=== PATIENT | female | born 1985 | race Caucasian/White ===

== ENCOUNTER 2018-07-13 19:36 | Observation (INO) | payer MEDICAID ==
[~2018-07-13] VITALS: Ht 167.6 cm; Wt 76.4 kg
[2018-07-13 20:32] LABS: BASOPHILS 0.2 % (0-2); EOSINOPHILS 0.7 % (0-7); HEMATOCRIT 34.7 % (36.0-48.0); HEMOGLOBIN 11.2 g/dL (12-16); IMMATURE GRANULOCYTES 0.2 % (0-5); LYMPHOCYTES 7.2 % (15-50); MCH 27.2 pg (26.0-34.0); MCHC 32.3 g/dL (31.0-37.0); MCV 84.2 fL (80.0-100.0); MEAN PLATELET VOLUME 9.5 fL (7.4-10.4); MONOCYTES 2.2 % (2-11); NEUTROPHILS 89.5 % (40-80); PLATELET COUNT 323 10x3/uL (130-400); RBC 4.12 10x6/uL (4.00-5.40); RDW 13.6 % (11.5-14.5); WBC 5.9 10x3/uL (4.8-10.8)
[2018-07-13 20:36] LABS: HCG URINE NEGATIVE (NEGATIVE)
[2018-07-13 20:41] LABS: APPEARANCE CLEAR (CLEAR); BILIRUBIN 1+ (NEGATIVE); COLOR YELLOW (YELLOW); GLUCOSE NEGATIVE (NEGATIVE); KETONE SMALL mg/dL (NEGATIVE); NITRITE NEGATIVE (NEGATIVE); PROTEIN NEGATIVE (NEGATIVE)
[2018-07-13 20:43] LABS: BACTERIA FEW /hpf (NONE SEEN); EPITHELIAL CELLS 0-5 /hpf (0-5); RED CELLS - URINE 0-5 /hpf (0-5); WHITE CELLS - URINE 0-5 /hpf (0-5)
[2018-07-13 20:44] LABS: ALBUMIN 3.2 g/dL (3.4-5.0); ALKALINE PHOSPHATASE 101 U/L (46-116); ALT (SGPT) 58 U/L (10-68); CALC OSMOLALITY 267 mosm/kg (275-300); CALCIUM 8.1 mg/dL (8.5-10.1); CARBON DIOXIDE 28.4 mmol/L (21.0-32.0); CHLORIDE - SERUM 98 mmol/L (98-107); CREATININE - SERUM 0.8 mg/dL (0.6-1.3); GLUCOSE 95 mg/dL (74-106); MUCUS <1+ /lpf (NONE SEEN); POTASSIUM - SERUM 3.4 mmol/L (3.5-5.1); PROTEIN - SERUM 7.1 g/dL (6.4-8.2); SODIUM 135 mmol/L (136-145); UREA NITROGEN 8 mg/dL (7-18); eGFR NON AFRICAN AMERICAN 88 mL/min (90-120)
[2018-07-13 20:48] LABS: AMYLASE - SERUM 33 U/L (25-115); LIPASE 79 U/L (73-393); TROPONIN-I < 0.017 ng/mL (0.000-0.060)
--- NOTE | 2018-07-13 21:44 | NUR ---
PT SLEEPING ON BED, FAMILY AT BEDSIDE.
--- NOTE | 2018-07-13 22:15 | NUR ---
PT RESTING ON BED, NO S/S OF ACUTE DISTRESS NOTED AT THIS TIME.
[2018-07-13 22:37] VITALS: BP 125/62
--- NOTE | 2018-07-13 23:10 | NUR ---
PT SLEEPING ON BED. NO S/S OF ACUTE DISTRESS NOTED.
[2018-07-13 23:49] VITALS: BP 126/75
--- NOTE | 2018-07-14 00:10 | NUR ---
PT UPDATED ON PLAN OF CARE. PT FAMILY AT BEDSIDE.
--- NOTE | 2018-07-14 00:44 | NUR ---
PT SLEEPING ON BED AFTER RECEIVING IV MORPHINE.
[2018-07-14 02:48] VITALS: BP 100/61; BMI 27.0
[2018-07-14 04:00] VITALS: BP 98/54
[2018-07-14 07:30] LABS: BASOPHILS 0.2 % (0-2); EOSINOPHILS 0.5 % (0-7); HEMATOCRIT 33.2 % (36.0-48.0); HEMOGLOBIN 10.4 g/dL (12-16); LYMPHOCYTES 22.8 % (15-50); MCH 26.5 pg (26.0-34.0); MCHC 31.3 g/dL (31.0-37.0); MCV 84.7 fL (80.0-100.0); MONOCYTES 5.9 % (2-11); NEUTROPHILS 70.6 % (40-80); PLATELET COUNT 277 10x3/uL (130-400); RBC 3.92 10x6/uL (4.00-5.40); RDW 13.8 % (11.5-14.5)
[2018-07-14 07:33] LABS: WBC 4.2 10x3/uL (4.8-10.8)
--- NOTE | 2018-07-14 07:45 | NUR ---
PT RESTING IN BED, EYES CLOSED. RR ARE EVEN AND UNLABORED. WCTM.
[2018-07-14 07:51] LABS: ALBUMIN 2.4 g/dL (3.4-5.0); ALKALINE PHOSPHATASE 73 U/L (46-116); BILIRUBIN - TOTAL 0.36 mg/dL (0.2-1.3); CALC OSMOLALITY 273 mosm/kg (275-300); CARBON DIOXIDE 26.3 mmol/L (21.0-32.0); CHLORIDE - SERUM 103 mmol/L (98-107); CREATININE - SERUM 0.8 mg/dL (0.6-1.3); GLUCOSE 90 mg/dL (74-106); PROTEIN - SERUM 5.5 g/dL (6.4-8.2); SODIUM 138 mmol/L (136-145); UREA NITROGEN 6 mg/dL (7-18); eGFR NON AFRICAN AMERICAN 88 mL/min (90-120)
[2018-07-14 07:57] LABS: ALT (SGPT) 43 U/L (10-68)
[2018-07-14 09:12] VITALS: BP 89/59
--- NOTE | 2018-07-14 09:42 | NUR ---
PHARMACY NOTIFIED OF NEED FOR FLAGYL.
--- NOTE | 2018-07-14 11:01 | NUR ---
PT GIVEN PRN 40MEQ OF POTASSIUM PER ORDERS. EXPLAINED VAGINAL ULTRASOUND PROCEDURE AND PT IS TO NOTIFY WHEN SHE HAS FINISHED THE 40 OUNCES.
[2018-07-14 12:30] VITALS: BP 105/61
[2018-07-14 15:01] VITALS: BMI 26.9
[2018-07-14 16:37] LABS: ERYTHROCYTE SEDIMENTATION RATE 9 mm/hr (0-20)
[2018-07-14 17:18] VITALS: BP 106/63
--- NOTE | 2018-07-14 19:55 | NUR ---
RESUMING PT CARE. PT IS ALERT LAYING IN BED WITH NO C/O VOICED. NO S/S OF DISTRESS NOTED. PT HAS A IV IN THE LEFT AC. BED IN LOW POSITION WITH CALL LIGHT IN REACH. WILL CONTINUE TO MONITOR PT AND FOLLOW PLAN OF CARE.
[2018-07-14 20:00] VITALS: BP 87/56
[2018-07-15] VITALS: BP 102/68
[2018-07-15 03:00] VITALS: BP 111/73
--- NOTE | 2018-07-15 03:25 | NUR ---
I have reviewed this patient and I concur with the Shift Assessment completed by the Licensed Practical Nurse today this shift.
[2018-07-15 07:58] LABS: BASOPHILS 0.2 % (0-2); EOSINOPHILS 1.7 % (0-7); HEMOGLOBIN 10.2 g/dL (12-16); LYMPHOCYTES 40.6 % (15-50); MCH 26.4 pg (26.0-34.0); MCHC 30.9 g/dL (31.0-37.0); MCV 85.5 fL (80.0-100.0); MEAN PLATELET VOLUME 9.5 fL (7.4-10.4); MONOCYTES 9.2 % (2-11); NEUTROPHILS 48.3 % (40-80); PLATELET COUNT 288 10x3/uL (130-400); RBC 3.86 10x6/uL (4.00-5.40); RDW 14.2 % (11.5-14.5)
[2018-07-15 08:16] LABS: CALC OSMOLALITY 275 mosm/kg (275-300); CALCIUM 7.3 mg/dL (8.5-10.1); CHLORIDE - SERUM 107 mmol/L (98-107); CREATININE - SERUM 0.8 mg/dL (0.6-1.3); GLUCOSE 93 mg/dL (74-106); POTASSIUM - SERUM 3.5 mmol/L (3.5-5.1); SODIUM 140 mmol/L (136-145); UREA NITROGEN 3 mg/dL (7-18); eGFR NON AFRICAN AMERICAN 88 mL/min (90-120)
[2018-07-15 08:25] VITALS: BP 112/67
--- NOTE | 2018-07-15 09:05 | NUR ---
PT AM MEDS ADMINISTERED. PT DENIES NEEDS. WCTM.
[2018-07-15 12:08] VITALS: BP 103/60
[2018-07-15 14:21] VITALS: Ht 167.6 cm; Wt 76.4 kg
[2018-07-15 16:45] VITALS: BP 101/51
--- NOTE | 2018-07-15 19:45 | NUR ---
PT SITTING UP IN BED, NO SIGNS OF DISTRESS. ALERT AND ORIENTED. DENIES PAIN OR NEEDS AT THIS TIME. IV LEFT AC INFUSING NS @ 200. CL IN REACH, WILL CONT TO MONITOR
[2018-07-15 20:00] VITALS: BP 101/66
[2018-07-16] VITALS: BP 105/67
[2018-07-16 04:00] VITALS: BP 101/65
[2018-07-16 05:47] LABS: BASOPHILS 0.2 % (0-2); EOSINOPHILS 1.9 % (0-7); HEMATOCRIT 31.6 % (36.0-48.0); HEMOGLOBIN 9.9 g/dL (12-16); IMMATURE GRANULOCYTES 0.2 % (0-5); LYMPHOCYTES 37.7 % (15-50); MCH 26.3 pg (26.0-34.0); MCHC 31.3 g/dL (31.0-37.0); MCV 83.8 fL (80.0-100.0); MEAN PLATELET VOLUME 9.8 fL (7.4-10.4); PLATELET COUNT 287 10x3/uL (130-400); RBC 3.77 10x6/uL (4.00-5.40); WBC 4.7 10x3/uL (4.8-10.8)
[2018-07-16 06:05] LABS: CALC OSMOLALITY 275 mosm/kg (275-300); CALCIUM 7.4 mg/dL (8.5-10.1); CARBON DIOXIDE 26.8 mmol/L (21.0-32.0); CHLORIDE - SERUM 107 mmol/L (98-107); CREATININE - SERUM 0.8 mg/dL (0.6-1.3); GLUCOSE 108 mg/dL (74-106); POTASSIUM - SERUM 3.5 mmol/L (3.5-5.1); SODIUM 139 mmol/L (136-145); eGFR NON AFRICAN AMERICAN 88 mL/min (90-120)
[2018-07-16 06:09] LABS: UREA NITROGEN 4 mg/dL (7-18)
[2018-07-16 07:50] VITALS: BP 100/64
[2018-07-16] MEDS ORDERED: FLAGYL500 MG PO (12:02)
[2018-07-16] MEDS ORDERED: DOXYCYCLINE HY100 M2 PO (12:04)
[2018-07-16 12:45] VITALS: BP 105/65
--- NOTE | 2018-07-16 15:01 | MORECARE ---
CASE MANAGEMENT DISCHARGE SUMMARY PATIENT: ARABELLA STERN UNIT: [id number] ADM DATE: 07/14/18 AGE: 32 : 85 SEX: F ROOM/BED: D.1209 AUTHOR: NUPUR DIAS PHYSICIAN: REFERRING PHYSICIAN: AMPARO SANTACRUZ MD DATE OF SERVICE: 07/16/18 Discharge Plan Patient Name: ARABELLA STERN Facility: [facility]:[place] : 1985 Planned Disposition: Home Anticipated Discharge Date: 07/16/18 Discharge Date: Expected LOS: 2 Initial Reviewer: [email or web address] Initial Review Date: 07/16/2018 Generated: 07/16/18 4:01 pm Patient Name: ARABELLA STERN Page [id number] at 1501 All edits/amendments must be made on the electronic document DICTATION DATE: 07/16/[address] MAGISTRATE: PRINCESS 07/16/18 1501 RPT#: [id number] DC DATE: STATUS: ADM IN [facility] [address] [place] [address] END OF REPORT
--- NOTE | 2018-07-16 16:00 | NUR ---
THIS NURSE AGRESS WITH THE [employer]AT GR[employer]ER CHARTING/ASSESSMENT
--- NOTE | 2018-07-16 17:34 | NUR ---
PATIENT DISCHARGED VIA PRIVATE VEHICLE WITH ALL BELONGINGS. IV REMOVED PRIOR TO DISCHARGE. DISCHARGED VIA W/C WITH FRIEND.
--- NOTE | 2018-07-17 08:40 | MORECARE ---
CASE MANAGEMENT DISCHARGE SUMMARY PATIENT: ARABELLA STERN UNIT: [id number] ADM DATE: 07/14/18 AGE: 32 : 85 SEX: F ROOM/BED: D.1209 AUTHOR: NUPUR DIAS PHYSICIAN: REFERRING PHYSICIAN: AMPARO SANTACRUZ MD DATE OF SERVICE: 07/17/18 Discharge Plan Patient Name: ARABELLA STERN Facility: [facility]:[place] : 1985 Planned Disposition: Home Anticipated Discharge Date: 07/16/18 Discharge Date: 07/16/2018 Expected LOS: 2 Initial Reviewer: [email or web address] Initial Review Date: 07/16/2018 Generated: 07/17/18 9:40 am Last DP export: 07/16/18 2:01 p Patient Name: ARABELLA STERN Page [id number] at 0840 All edits/amendments must be made on the electronic document DICTATION DATE: 07/17/18838 CORE PLACER: PRINCESS 07/17/18 0839 RPT#: [id number] DC DATE:07/16/18 STATUS: DIS IN [facility] [address] [place] [address] END OF REPORT
== END 2018-07-16 16:50 | disposition home or self-care (01) ==
LOC: D.ER 19:36 → OBSVTIME 07-14 00:22 → D.M3 07-14 00:22 → D.EDHOLD 07-14 00:22 → D.M3 07-14 00:46
PROVIDERS: Emergency Medicine; Family Medicine; ADMIT Family Medicine; ATTEND Family Medicine
DX: K52.9 Noninfective gastroenteritis and colitis, unspecified (principal); E87.6 Hypokalemia; D50.9 Iron deficiency anemia, unspecified; N83.202 Unspecified ovarian cyst, left side; N73.9 Female pelvic inflammatory disease, unspecified

== ENCOUNTER 2018-07-24 09:32 | Emergency (ER) | payer MEDICAID ==
[~2018-07-24] VITALS: Ht 167.6 cm; Wt 65.9 kg
[2018-07-24 09:32] VITALS: Ht 167.6 cm; Wt 65.9 kg
[~2018-07-24 09:32] MED LIST: DOXYCYCLINE HY100 M2 PO; FLAGYL500 MG PO
[2018-07-24 10:07] LABS: BASOPHILS 0.2 % (0-2); HEMATOCRIT 43.2 % (36.0-48.0); HEMOGLOBIN 14.1 g/dL (12-16); IMMATURE GRANULOCYTES 0.2 % (0-5); LYMPHOCYTES 16.1 % (15-50); MCH 27.2 pg (26.0-34.0); MCHC 32.6 g/dL (31.0-37.0); MCV 83.4 fL (80.0-100.0); MEAN PLATELET VOLUME 9.7 fL (7.4-10.4); MONOCYTES 6.1 % (2-11); NEUTROPHILS 76.4 % (40-80); PLATELET COUNT 488 10x3/uL (130-400); RBC 5.18 10x6/uL (4.00-5.40)
[2018-07-24 10:24] LABS: ALBUMIN 3.8 g/dL (3.4-5.0); ALKALINE PHOSPHATASE 85 U/L (46-116); ALT (SGPT) 29 U/L (10-68); CALC OSMOLALITY 280 mosm/kg (275-300); CALCIUM 8.9 mg/dL (8.5-10.1); CARBON DIOXIDE 28.2 mmol/L (21.0-32.0); CHLORIDE - SERUM 100 mmol/L (98-107); CREATININE - SERUM 0.9 mg/dL (0.6-1.3); GLUCOSE 132 mg/dL (74-106); POTASSIUM - SERUM 3.8 mmol/L (3.5-5.1); PROTEIN - SERUM 8.1 g/dL (6.4-8.2); SODIUM 139 mmol/L (136-145); UREA NITROGEN 15 mg/dL (7-18); eGFR NON AFRICAN AMERICAN 77 mL/min (90-120)
[2018-07-24 10:27] LABS: AMYLASE - SERUM 44 U/L (25-115); LIPASE 114 U/L (73-393)
[2018-07-24 10:28] LABS: TROPONIN-I < 0.017 ng/mL (0.000-0.060)
[2018-07-24 12:28] LABS: APPEARANCE CLEAR (CLEAR); BILIRUBIN NEGATIVE (NEGATIVE); COLOR YELLOW (YELLOW); GLUCOSE NEGATIVE (NEGATIVE); KETONE NEGATIVE (NEGATIVE); NITRITE NEGATIVE (NEGATIVE); PROTEIN NEGATIVE (NEGATIVE); UROBILINOGEN NORMAL (NORMAL)
[2018-07-24 12:45] LABS: HCG URINE NEGATIVE (NEGATIVE)
[2018-07-24] MEDS ORDERED: BENTYL 20 MG TA20 MG PO (15:26)
[2018-07-24] MEDS ORDERED: ZOFRAN ODT4 MG/UDTAB PO (15:26)
[2018-07-24 19:33] VITALS: BP 108/68
== END 2018-07-24 16:51 | disposition home or self-care (01) ==
LOC: D.ER 09:32
PROVIDERS: Family Medicine
DX: R11.2 Nausea with vomiting, unspecified (principal); R10.9 Unspecified abdominal pain